=== PATIENT | male | born 1950 | race Caucasian/White ===

== ENCOUNTER 2019-09-17 15:31 | Inpatient (IN) | payer MEDICARE, MEDICAID ==
[~2019-09-17] VITALS: Ht 185.4 cm; Wt 108.9 kg
[~2019-09-17 15:31] MED LIST: NO MEDS
[2019-09-17] MEDS ORDERED: SODIUM CHLORIDE 0.9% 250 ML IV ONE (15:45)
[2019-09-17] MEDS ORDERED: LIDOCAINE HCL/EPINEPHRINE 1%-EPI 1:100,000 30 ML VIAL INFIL ONE (15:45)
[2019-09-17] MEDS ORDERED: DILTIAZEM HCL 5MG/ML 5ML VIAL IV ONE (15:45)
[2019-09-17] MEDS ORDERED: LIDOCAINE HCL/EPINEPHRINE 1%-EPI 1:100,000 20 ML VIAL INFIL NR (16:15)
[2019-09-17 16:18] LABS: HEMATOCRIT. 30.6 % (42.0-52.0); HEMOGLOBIN. 10.2 g/dL (14.0-18.0); MEAN CORPUSCULAR HEMOGLOBIN 28.1 pg (28.0-32.0); MEAN PLATELET VOLUME 7.4 fl (7.4-10.4); PLATELET 257 x1000/uL (130-400); RED BLOOD CELL COUNT 3.65 mill/uL (4.7-6.1); RED CELL DISTRIBUTION WIDTH 17.3 % (11.6-14.6)
[2019-09-17 16:21] LABS: CHLORIDE 103 mEq/L (98-107)
[2019-09-17] MEDS ORDERED: POTASSIUM CHLORIDE INJ 40 MEQ in DEXT 5% WATER 250 ML IV NR (17:00)
[2019-09-17] MEDS ORDERED: FENTANYL CITRATE/PF 50MCG/ML 2ML VIAL IV ONE (17:00)
[2019-09-17] MEDS ORDERED: KETOROLAC 15MG/ML VIAL IV ONE (17:00)
[2019-09-17 17:16] LABS: INR 1.2; PARTIAL THROMBOPLASTIN TIME 23.4 sec (23.4-31.0); PROTHROMBIN TIME 12.1 sec (9.6-11.0)
[2019-09-17 17:38] LABS: PLATELET ESTIMATE NORMAL
[2019-09-17] MEDS ORDERED: POTASSIUM CHLORIDE 20MEQ TABLET SR PO ONE (18:30)
[2019-09-17] MEDS ORDERED: FUROSEMIDE 40MG/4ML VIAL IVP ONE (18:45)
[2019-09-17] MEDS ORDERED: DILTIAZEM HCL 60MG TABLET PO SCH (21:37)
[2019-09-17 21:58] LABS: BASOPHILS % 0.6 % (0.0-2.0); HEMATOCRIT. 27.7 % (42.0-52.0); HEMOGLOBIN. 9.2 g/dL (14.0-18.0); LYMPHOCYTES % 10.3 % (20.0-50.0); MEAN CORPUSCULAR HEMOGLOBIN 27.8 pg (28.0-32.0); MEAN CORPUSCULAR VOLUME 83.6 fL (80.0-94.0); MEAN PLATELET VOLUME 7.2 fl (7.4-10.4); MONOCYTES % 7.3 % (2.0-8.0); NEUTROPHILS % 81.8 % (40.0-76.0); PLATELET 229 x1000/uL (130-400); RED BLOOD CELL COUNT 3.32 mill/uL (4.7-6.1); RED CELL DISTRIBUTION WIDTH 17.3 % (11.6-14.6)
[2019-09-17 22:04] LABS: CHLORIDE 104 mEq/L (98-107)
[2019-09-17] MEDS ORDERED: POTASSIUM CHLORIDE 20MEQ TABLET SR PO SCH (22:30)
[2019-09-17] MEDS ORDERED: OMEP10CA5 MT (23:45)
[2019-09-17 23:47] VITALS: BP 119/65
[2019-09-18] VITALS: BP 119/65
[2019-09-18] MEDS: DILTIAZEM HCL 60MG TABLET PO SCH ×4 (00:22→20:09)
[2019-09-18] MEDS ORDERED: TRAMADOL 50MG TABLET PO PRN (01:15)
[2019-09-18] MEDS ORDERED: TEMAZEPAM 15MG CAPSULE PO PRN (01:15)
[2019-09-18] MEDS: HYDROMORPHONE HCL/PF 2MG/ML CPJ IV PRN ×3 (02:49→20:14)
[2019-09-18 04:00] VITALS: BP 114/81
[2019-09-18 06:50] LABS: INR 1.2; PROTHROMBIN TIME 12.3 sec (9.6-11.0)
[2019-09-18 06:53] LABS: BASOPHILS % 0.6 % (0.0-2.0); EOSINOPHILS % 0.4 % (0.0-5.0); HEMATOCRIT. 27.2 % (42.0-52.0); LYMPHOCYTES % 18.3 % (20.0-50.0); MEAN CORPUSCULAR HEMOGLOBIN 27.9 pg (28.0-32.0); MEAN CORPUSCULAR VOLUME 83.8 fL (80.0-94.0); MEAN PLATELET VOLUME 7.4 fl (7.4-10.4); MONOCYTES % 11.3 % (2.0-8.0); NEUTROPHILS % 69.4 % (40.0-76.0); PLATELET 237 x1000/uL (130-400); RED BLOOD CELL COUNT 3.24 mill/uL (4.7-6.1); RED CELL DISTRIBUTION WIDTH 17.3 % (11.6-14.6)
[2019-09-18 06:59] LABS: CHLORIDE 102 mEq/L (98-107)
[2019-09-18 07:17] LABS: CREATINE KINASE 67 IU/L (39-308)
[2019-09-18 07:19] LABS: CREATINE KINASE MB FRACTION 1.2 ng/mL (0.5-3.6)
[2019-09-18 07:42] VITALS: BP 98/62
[2019-09-18] MEDS ORDERED: POTASSIUM CHLORIDE 20MEQ TABLET SR PO NR (10:10)
[2019-09-18] MEDS: PANTOPRAZOLE 40MG DR TABLET PO SCH (10:14)
[2019-09-18] MEDS ORDERED: PIPERACILLIN/TAZOBACTAM 2.25 G in DEXTROSE 5% WATER 50 ML IV SCH (11:00)
[2019-09-18 12:00] VITALS: BP 118/61
[2019-09-18 12:37] LABS: CANNABINOID URINE SCREEN PRESUMTIVE POSITIVE (NEGATIVE); OPIATES URINE SCREEN PRESUMTIVE POSITIVE (NEGATIVE); PHENCYCLIDINE URINE SCREEN NEGATIVE (NEGATIVE)
[2019-09-18 12:38] LABS: *AMPHETAMINES SCREEN URINE PRESUMTIVE POSITIVE (NEGATIVE); *BARBITURATES SCREEN URINE NEGATIVE (NEGATIVE); *BENZODIAZEPINES SCREEN URINE NEGATIVE (NEGATIVE); *COCAINE SCREEN URINE NEGATIVE (NEGATIVE); METHADONE URINE SCREEN PRESUMTIVE POSITIVE (NEGATIVE)
[2019-09-18] MEDS ORDERED: VANCOMYCIN 2,000 MG in DEXT 5% WATER 500 ML IV NR (13:00)
[2019-09-18] MEDS: PIPERACILLIN/TAZOBACTAM 3.375 G in DEXT 5% WATER 100 ML IV SCH ×2 (13:16→18:54)
[2019-09-18] MEDS ORDERED: POTASSIUM CHLORIDE 20MEQ TABLET SR PO SCH (14:45)
[2019-09-18 15:41] LABS: CREATINE KINASE 55 IU/L (39-308)
[2019-09-18 15:43] LABS: CREATINE KINASE MB FRACTION 1.1 ng/mL (0.5-3.6)
[2019-09-18 16:00] VITALS: BP 98/61
[2019-09-18] MEDS ORDERED: ACETAMINOPHEN 650MG SUPP PR PRN (16:00)
[2019-09-18] MEDS ORDERED: LORAZEPAM 2MG/ML CPJ IV PRN (16:00)
[2019-09-18] MEDS ORDERED: HYDRALAZINE 20MG/ML VIAL IV PRN (16:00)
[2019-09-18] MEDS ORDERED: DIPHENHYDRAMINE 50MG/ML VIAL IV PRN (16:00)
[2019-09-18] MEDS ORDERED: IPRATROPIUM/ALBUTEROL 0.5-3(2.5)MG/3ML NEB HHN PRN (16:00)
[2019-09-18] MEDS ORDERED: BISACODYL 10MG SUPP PR PRN (16:00)
[2019-09-18] MEDS ORDERED: ACETAMINOPHEN 325MG TABLET PO PRN (16:00)
[2019-09-18] MEDS: FUROSEMIDE 40MG/4ML VIAL IVP SCH (16:49)
[2019-09-18 17:03] LABS: HEMATOCRIT 23.8 % (42.0-52.0); HEMOGLOBIN 7.9 g/dL (14.0-18.0)
[2019-09-18 20:00] VITALS: BP 99/52
[2019-09-18 22:05] LABS: CLARITY URINE CLEAR (CLEAR); COLOR URINE YELLOW (YELLOW); KETONES URINE NEGATIVE (NEGATIVE); LEUKOCYTE ESTERASE URINE NEGATIVE (NEGATIVE); NITRITE URINE NEGATIVE (NEGATIVE); OCCULT BLOOD URINE NEGATIVE (NEGATIVE); PH URINE 5.5 (4.5-8.0); PROTEIN URINE NEGATIVE (NEGATIVE); SPECIFIC GRAVITY URINE 1.019 (1.005-1.030); UROBILINOGEN URINE 0.2 E.U./dL (0.2-1.0)
[2019-09-19] VITALS: BP 120/57
[2019-09-19 00:37] LABS: CREATINE KINASE 50 IU/L (39-308)
[2019-09-19 00:46] LABS: CREATINE KINASE MB FRACTION 1.2 ng/mL (0.5-3.6)
[2019-09-19] MEDS: PIPERACILLIN/TAZOBACTAM 3.375 G in DEXT 5% WATER 100 ML IV SCH ×4 (01:14→19:40)
[2019-09-19] MEDS: HYDROMORPHONE HCL/PF 2MG/ML CPJ IV PRN ×3 (03:07→22:16)
[2019-09-19 04:00] VITALS: BP 92/85
[2019-09-19] MEDS: DILTIAZEM HCL 60MG TABLET PO SCH ×3 (05:52→21:46)
[2019-09-19] MEDS: VANCOMYCIN 1250MG in DEXTROSE 5% WATER 250ML IV SCH ×3 (06:07→23:39)
[2019-09-19 07:42] LABS: BASOPHILS % 0.6 % (0.0-2.0); EOSINOPHILS % 1.1 % (0.0-5.0); HEMATOCRIT. 23.4 % (42.0-52.0); HEMOGLOBIN. 7.8 g/dL (14.0-18.0); LYMPHOCYTES % 15.3 % (20.0-50.0); MEAN CORPUSCULAR HEMOGLOBIN 27.8 pg (28.0-32.0); MEAN CORPUSCULAR VOLUME 83.4 fL (80.0-94.0); MEAN PLATELET VOLUME 7.4 fl (7.4-10.4); MONOCYTES % 12.4 % (2.0-8.0); NEUTROPHILS % 70.6 % (40.0-76.0); PLATELET 213 x1000/uL (130-400); RED CELL DISTRIBUTION WIDTH 17.8 % (11.6-14.6)
[2019-09-19 07:52] LABS: CHLORIDE 104 mEq/L (98-107)
[2019-09-19 08:00] VITALS: BP 91/46
[2019-09-19 08:01] LABS: LDL CHOLESTEROL 48 mg/dL (5-100)
[2019-09-19 08:03] LABS: HDL CHOLESTEROL 25 mg/dL (40-59); T4 FREE 1.14 ng/dL (0.76-1.46)
[2019-09-19 08:31] LABS: HEPATITIS B SURFACE ANTIGEN NEGATIVE
[2019-09-19 08:32] LABS: VITAMIN B12 SERUM 826 pg/mL (211-911)
[2019-09-19 09:00] LABS: HEPATITIS A AB IGM NEGATIVE (NEGATIVE)
[2019-09-19] MEDS ORDERED: IOHEXOL-350 100 ML BOTTLE ONE (09:23)
[2019-09-19] MEDS: PANTOPRAZOLE 40MG DR TABLET PO SCH (09:38)
[2019-09-19] MEDS: FUROSEMIDE 40MG/4ML VIAL IVP SCH (09:38)
[2019-09-19] MEDS: POTASSIUM CHLORIDE 20MEQ TABLET SR PO SCH (09:41)
[2019-09-19 12:00] VITALS: BP 95/58
[2019-09-19 16:00] VITALS: BP 90/55
[2019-09-19 20:00] VITALS: BP 87/54
[2019-09-20] VITALS: BP 90/55
[2019-09-20] MEDS: PIPERACILLIN/TAZOBACTAM 3.375 G in DEXT 5% WATER 100 ML IV SCH ×4 (01:20→18:11)
[2019-09-20 04:00] VITALS: BP 110/72
[2019-09-20] MEDS: HYDROMORPHONE HCL/PF 2MG/ML CPJ IV PRN (04:33)
[2019-09-20] MEDS: DILTIAZEM HCL 60MG TABLET PO SCH ×3 (05:37→22:00)
[2019-09-20 08:00] VITALS: BP 149/123
[2019-09-20] MEDS: PANTOPRAZOLE 40MG DR TABLET PO SCH (08:45)
[2019-09-20] MEDS: FUROSEMIDE 40MG/4ML VIAL IVP SCH (08:46)
[2019-09-20] MEDS: POTASSIUM CHLORIDE 20MEQ TABLET SR PO SCH (08:46)
[2019-09-20] MEDS: HYDROCODONE/ACETAMINOPHEN 5/325MG TABLET PO PRN ×2 (08:52→22:34)
[2019-09-20 12:00] VITALS: BP 81/65
[2019-09-20 15:43] VITALS: BP 83/45
[2019-09-20] MEDS: LEVOTHYROXINE SODIUM 100MCG TABLET PO SCH (15:49)
[2019-09-20 20:00] VITALS: BP 96/56
[2019-09-20] MEDS: VANCOMYCIN 1250MG in DEXTROSE 5% WATER 250ML IV SCH (22:34)
[2019-09-21] VITALS: BP 103/58
[2019-09-21] MEDS: HYDROMORPHONE HCL/PF 2MG/ML CPJ IV PRN ×5 (00:17→19:40)
[2019-09-21] MEDS: PIPERACILLIN/TAZOBACTAM 3.375 G in DEXT 5% WATER 100 ML IV SCH ×4 (01:12→18:18)
[2019-09-21 04:00] VITALS: BP 97/53
[2019-09-21] MEDS: DILTIAZEM HCL 60MG TABLET PO SCH ×3 (06:00→22:00)
[2019-09-21] MEDS: LEVOTHYROXINE SODIUM 100MCG TABLET PO SCH (06:10)
[2019-09-21 07:13] LABS: BASOPHILS % 0.5 % (0.0-2.0); EOSINOPHILS % 1.7 % (0.0-5.0); HEMATOCRIT. 23.4 % (42.0-52.0); HEMOGLOBIN. 7.7 g/dL (14.0-18.0); LYMPHOCYTES % 20.6 % (20.0-50.0); MEAN CORPUSCULAR HEMOGLOBIN 27.6 pg (28.0-32.0); MEAN CORPUSCULAR VOLUME 83.5 fL (80.0-94.0); MEAN PLATELET VOLUME 7.4 fl (7.4-10.4); MONOCYTES % 14.4 % (2.0-8.0); NEUTROPHILS % 62.8 % (40.0-76.0); PLATELET 227 x1000/uL (130-400); RED CELL DISTRIBUTION WIDTH 17.5 % (11.6-14.6)
[2019-09-21 07:16] LABS: CHLORIDE 108 mEq/L (98-107)
[2019-09-21 07:25] LABS: TOTAL IRON BINDING CAPACITY 343 ug/dL (250-450)
[2019-09-21 07:26] LABS: PHOSPHORUS 3.2 mg/dL (2.5-4.9)
[2019-09-21 07:55] VITALS: BP 93/48
[2019-09-21] MEDS: POTASSIUM CHLORIDE 20MEQ TABLET SR PO SCH (08:34)
[2019-09-21] MEDS: FUROSEMIDE 40MG/4ML VIAL IVP SCH (08:34)
[2019-09-21] MEDS: PANTOPRAZOLE 40MG DR TABLET PO SCH (08:34)
[2019-09-21] MEDS ORDERED: POTASSIUM CHLORIDE 20MEQ TABLET SR PO NR (09:45)
[2019-09-21 12:00] VITALS: BP 100/53
[2019-09-21 16:00] VITALS: BP 100/53
[2019-09-21 20:00] VITALS: BP 119/71
[2019-09-21] MEDS: VANCOMYCIN 1250MG in DEXTROSE 5% WATER 250ML IV SCH (23:32)
[2019-09-22] VITALS (7 sets, daily range): BP systolic 101–121; BP diastolic 57–75
[2019-09-22] MEDS: HYDROMORPHONE HCL/PF 2MG/ML CPJ IV PRN ×5 (01:04→23:24)
[2019-09-22] MEDS: PIPERACILLIN/TAZOBACTAM 3.375 G in DEXT 5% WATER 100 ML IV SCH ×4 (01:04→19:53)
[2019-09-22] MEDS: DEXT 5%/0.45% NACL 1000ML 1,000 ML IV SCH ×2 (02:23→19:56)
[2019-09-22 06:12] LABS: HEMATOCRIT 23.9 % (42.0-52.0); MEAN CORPUSCULAR VOLUME 83.8 fL (80.0-94.0); PLATELET 254 x1000/uL (130-400); RED BLOOD CELL COUNT 2.85 mill/uL (4.7-6.1); RED CELL DISTRIBUTION WIDTH 17.2 % (11.6-14.6)
[2019-09-22] MEDS: LEVOTHYROXINE SODIUM 100MCG TABLET PO SCH (06:15)
[2019-09-22] MEDS: DILTIAZEM HCL 60MG TABLET PO SCH ×3 (06:15→22:42)
[2019-09-22 06:18] LABS: INR 1.1; PARTIAL THROMBOPLASTIN TIME 28.5 sec (23.4-31.0); PROTHROMBIN TIME 11.9 sec (9.6-11.0)
[2019-09-22 06:39] LABS: CHLORIDE 108 mEq/L (98-107)
[2019-09-22] MEDS: POTASSIUM CHLORIDE 20MEQ TABLET SR PO SCH (09:00)
[2019-09-22] MEDS: FUROSEMIDE 40MG/4ML VIAL IVP SCH ×2 (09:00→09:03)
[2019-09-22] MEDS: PANTOPRAZOLE 40MG DR TABLET PO SCH (09:00)
[2019-09-22] MEDS ORDERED: SODIUM CHLORIDE 0.9% 1,000 ML IV ONE (16:21)
[2019-09-22] MEDS ORDERED: ONDANSETRON HCL 4MG/2ML INJ IV PRN (16:30)
[2019-09-22] MEDS ORDERED: HYDROMORPHONE HCL/PF 2MG/ML CPJ IV PRN (16:30)
[2019-09-22] MEDS ORDERED: PROPOFOL 200MG/20ML VIAL IV ONE (16:33)
[2019-09-22] MEDS ORDERED: SUCCINYLCHOLINE CHLORIDE 200MG/10ML IV ONE (16:33)
[2019-09-22] MEDS ORDERED: MIDAZOLAM HCL 5 MG/5 ML VIAL ONE (16:33)
[2019-09-22] MEDS: VANCOMYCIN 1250MG in DEXTROSE 5% WATER 250ML IV SCH (23:23)
[2019-09-23] VITALS: BP 141/94
[2019-09-23 04:00] VITALS: BP 93/54
[2019-09-23] MEDS ORDERED: HYDROMORPHONE HCL/PF 2MG/ML CPJ IV PRN (04:45)
[2019-09-23] MEDS: PIPERACILLIN/TAZOBACTAM 3.375 G in DEXT 5% WATER 100 ML IV SCH ×4 (04:49→19:57)
[2019-09-23] MEDS: DILTIAZEM HCL 60MG TABLET PO SCH (06:00)
[2019-09-23 06:53] LABS: HEMATOCRIT 23.6 % (42.0-52.0); HEMOGLOBIN 7.9 g/dL (14.0-18.0); MEAN CORPUSCULAR HEMOGLOBIN 28.2 pg (28.0-32.0); MEAN CORPUSCULAR VOLUME 84.5 fL (80.0-94.0); PLATELET 267 x1000/uL (130-400); RED CELL DISTRIBUTION WIDTH 17.2 % (11.6-14.6)
[2019-09-23 07:26] LABS: CHLORIDE 109 mEq/L (98-107)
[2019-09-23 07:52] VITALS: BP 115/43
[2019-09-23] MEDS: LEVOTHYROXINE SODIUM 100MCG TABLET PO SCH (09:07)
[2019-09-23] MEDS: PANTOPRAZOLE 40MG DR TABLET PO SCH (09:07)
[2019-09-23] MEDS: POTASSIUM CHLORIDE 20MEQ TABLET SR PO SCH (09:07)
[2019-09-23] MEDS: FUROSEMIDE 40MG/4ML VIAL IVP SCH (09:07)
[2019-09-23] MEDS: HYDROCODONE/ACETAMINOPHEN 5/325MG TABLET PO PRN ×2 (09:57→19:58)
[2019-09-23 12:00] VITALS: BP 114/72
[2019-09-23] MEDS: VANCOMYCIN 1 G PREMIX 200 ML IV SCH ×2 (12:18→21:36)
[2019-09-23] MEDS ORDERED: LEVO100T MT (13:12)
[2019-09-23] MEDS ORDERED: PANT40SU MT (13:12)
[2019-09-23] MEDS ORDERED: DILT30TA38 MT (13:12)
[2019-09-23] MEDS: DILTIAZEM HCL 30MG TABLET PO SCH ×2 (14:00→21:36)
[2019-09-23] MEDS ORDERED: FURO-151 MT (16:46)
[2019-09-23] MEDS ORDERED: POTA10CA42 PO (16:46)
[2019-09-23 20:00] VITALS: BP 133/78
[2019-09-23] MEDS ORDERED: TRAZODONE HCL 50MG TABLET PO SCH (22:30)
[2019-09-24] VITALS: BP 132/82
[2019-09-24] MEDS: HYDROCODONE/ACETAMINOPHEN 10/325MG TABLET PO PRN ×2 (01:40→08:23)
[2019-09-24 04:00] VITALS: BP 126/65
[2019-09-24] MEDS: DILTIAZEM HCL 30MG TABLET PO SCH ×2 (06:00→06:40)
[2019-09-24] MEDS: LEVOTHYROXINE SODIUM 100MCG TABLET PO SCH ×2 (06:40→06:53)
[2019-09-24 07:49] VITALS: BP 110/61
[2019-09-24] MEDS: PANTOPRAZOLE 40MG DR TABLET PO SCH (08:23)
[2019-09-24] MEDS: POTASSIUM CHLORIDE 20MEQ TABLET SR PO SCH (08:23)
[2019-09-24] MEDS: FUROSEMIDE 40MG/4ML VIAL IVP SCH (09:12)
[2019-09-24 11:53] VITALS: BP 127/68
== END 2019-09-24 12:15 | disposition home or self-care (01) | DRG 871 ==
LOC: ER 15:31 → 8WST 18:34 → ENRESERV 21:56
PROVIDERS: ADMIT Internal Medicine; ATTEND Internal Medicine
PROC: 0DB68ZX Excision of Stomach, Via Natural or Artificial Opening Endoscopic, Diagnostic (ICD-10-PCS; principal; 2019-09-22)
DX: A41.9 Sepsis, unspecified organism (principal); I50.33 Acute on chronic diastolic (congestive) heart failure; L03.116 Cellulitis of left lower limb; L03.115 Cellulitis of right lower limb; I48.91 Unspecified atrial fibrillation; E87.6 Hypokalemia; B18.2 Chronic viral hepatitis C; K44.9 Diaphragmatic hernia without obstruction or gangrene; F43.10 Post-traumatic stress disorder, unspecified; D50.0 Iron deficiency anemia secondary to blood loss (chronic); E03.9 Hypothyroidism, unspecified; E78.5 Hyperlipidemia, unspecified; F31.9 Bipolar disorder, unspecified; I07.1 Rheumatic tricuspid insufficiency; I11.0 Hypertensive heart disease with heart failure; I27.20 Pulmonary hypertension, unspecified; F11.10 Opioid abuse, uncomplicated; F12.10 Cannabis abuse, uncomplicated; G90.8 Other disorders of autonomic nervous system; I73.9 Peripheral vascular disease, unspecified; F15.10 Other stimulant abuse, uncomplicated; I83.90 Asymptomatic varicose veins of unspecified lower extremity; R73.9 Hyperglycemia, unspecified; R61 Generalized hyperhidrosis; K29.70 Gastritis, unspecified, without bleeding; Z88.5 Allergy status to narcotic agent; Z87.19 Personal history of other diseases of the digestive system; Z79.899 Other long term (current) drug therapy; Z79.1 Long term (current) use of non-steroidal anti-inflammatories (NSAID)
CPT/HCPCS: 36415; 71045; 75635; 80048; 80053; 80061; 80202; 80305; 81003; 82140; 82270; 82550; 82553; 82607; 83036; 83540; 83550; 83735; 83880; 84100; 84439; 84443; 84484; 85014; 85018; 85025; 85027; 86705; 86709; 86803; 86850; 86900; 87340; 88305; 88313; 93005; 93306; 93880; 93970; 97162; 99291; J0330; J1170; J1885; J1940; J2060; J2250; J2543; J2704; J3010; J3370; J3480; J3490; J7050; J7060; Q9967

== ENCOUNTER 2020-11-07 20:28 | Inpatient (IN) | payer MEDICARE, MEDICAID ==
[~2020-11-07] VITALS: Ht 180.3 cm; Wt 104.8 kg
[~2020-11-07 20:28] MED LIST changes: +DILT30TA38 MT; +FURO-151 MT; +LEVO100T MT; -NO MEDS; +OMEP10CA5 MT; +PANT40SU MT; +POTA10CA42 PO
[2020-11-07] MEDS ORDERED: ASPIRIN 81MG TABLET PO ONE (20:45)
[2020-11-07 22:28] LABS: BASOPHILS % 0.3 % (0.0-2.0); HEMATOCRIT. 37.5 % (42.0-52.0); HEMOGLOBIN. 12.6 g/dL (14.0-18.0); LYMPHOCYTES % 8.1 % (20.0-50.0); MEAN CORPUSCULAR HEMOGLOBIN 28.1 pg (28.0-32.0); MEAN CORPUSCULAR VOLUME 83.8 fL (80.0-94.0); MEAN PLATELET VOLUME 7.9 fl (7.4-10.4); NEUTROPHILS % 85.6 % (40.0-76.0); PLATELET 152 x1000/uL (130-400); RED BLOOD CELL COUNT 4.48 mill/uL (4.7-6.1); RED CELL DISTRIBUTION WIDTH 16.2 % (11.6-14.6)
[2020-11-07 22:33] LABS: CHLORIDE 107 mEq/L (98-107)
[2020-11-08] MEDS ORDERED: FUROSEMIDE 40MG/4ML VIAL IVP ONE (00:45)
[2020-11-08] MEDS: IPRATROPIUM/ALBUTEROL 0.5-3(2.5)MG/3ML NEB HHN SCH ×2 (06:00→12:20)
[2020-11-08] MEDS ORDERED: ALBUTEROL 6.7GM HFA INHALER ORI ONE (06:30)
[2020-11-08] MEDS ORDERED: FUROSEMIDE 40MG/4ML VIAL IV SCH (06:30)
[2020-11-08 09:00] VITALS: BP_SYST 136; BP_SYST 147; BP_DIAS 88
[2020-11-08] MEDS ORDERED: ALBUTEROL 6.7GM HFA INHALER ORI SCH (10:30)
[2020-11-08] MEDS ORDERED: LORAZEPAM 2MG/ML CPJ IV PRN (10:30)
[2020-11-08] MEDS ORDERED: AZITHROMYCIN 500 MG in DEXT 5% WATER 250 ML IV SCH (10:30)
[2020-11-08] MEDS ORDERED: CEFTRIAXONE 1 G PREMIX 50 ML IV SCH (10:30)
[2020-11-08] MEDS ORDERED: MAGNESIUM/ALUMINUM HYDROXIDE/SIMETHICONE 30ML UDC PO PRN (10:30)
[2020-11-08] MEDS ORDERED: ACETAMINOPHEN 650MG SUPP PR PRN (10:30)
[2020-11-08] MEDS: DEXAMETHASONE 10 MG/ML VIAL IV SCH (10:54)
[2020-11-08 11:37] LABS: BG BASE EXCESS 6.6 mmol/L (-2.0-2.0); BG CARBOXYHEMOGLOBIN 0.5 % (0.5-1.5); BG HCO3 ACT 29.2 mmol/L (22.0-26.0); BG OXYGEN SATURATION 87.9 % (92.0-98.5); BG OXYHEMOGLOBIN 87.5 % (94.0-97.0); BG PCO2 35.3 mmHg (35.0-45.0); BG PH 7.536 (7.350-7.450); BG PO2 50.7 mmHg (75.0-100.0); BG SAMPLE SITE LEFT RADIAL; BG TOTAL HEMOGLOBIN 14.4 g/dL (12.0-18.0); BG VENT MODE NASAL CANNULA
[2020-11-08 11:53] VITALS: BP 127/70
[2020-11-08] MEDS: CEFTRIAXONE 1,000 MG in DEXTROSE 5% WATER 50 ML IV SCH (12:44)
[2020-11-08] MEDS: AZITHROMYCIN 500 MG in DEXT 5% WATER 250 ML IV SCH (12:44)
[2020-11-08] MEDS: ENOXAPARIN 100MG/ML SYR SUBCUT SCH ×2 (12:44→22:24)
[2020-11-08] MEDS: ALBUTEROL 6.7GM HFA INHALER ORI SCH ×2 (12:59→19:07)
[2020-11-08 14:15] LABS: CLARITY URINE CLEAR (CLEAR); COLOR URINE YELLOW (YELLOW); KETONES URINE NEGATIVE (NEGATIVE); LEUKOCYTE ESTERASE URINE NEGATIVE (NEGATIVE); NITRITE URINE NEGATIVE (NEGATIVE); OCCULT BLOOD URINE 1+ (NEGATIVE); PROTEIN URINE NEGATIVE (NEGATIVE); SPECIFIC GRAVITY URINE 1.007 (1.005-1.030)
[2020-11-08 14:35] LABS: *AMPHETAMINES SCREEN URINE NEGATIVE (NEGATIVE); *BARBITURATES SCREEN URINE NEGATIVE (NEGATIVE); *BENZODIAZEPINES SCREEN URINE NEGATIVE (NEGATIVE); *COCAINE SCREEN URINE NEGATIVE (NEGATIVE); METHADONE URINE SCREEN NEGATIVE (NEGATIVE); OPIATES URINE SCREEN NEGATIVE (NEGATIVE)
[2020-11-08 14:36] LABS: CANNABINOID URINE SCREEN NEGATIVE (NEGATIVE); PHENCYCLIDINE URINE SCREEN NEGATIVE (NEGATIVE)
[2020-11-08 15:58] VITALS: BP 114/79
[2020-11-08] MEDS ORDERED: LIDOCAINE HCL/PF 1% 2ML VIAL ONE (18:30)
[2020-11-08 20:28] VITALS: BP 119/85
[2020-11-08 21:31] LABS: BG BASE EXCESS 7.9 mmol/L (-2.0-2.0); BG CARBOXYHEMOGLOBIN 0.4 % (0.5-1.5); BG DEOXYHEMOGLOBIN 8.9 % (0.0-5.0); BG FRACTION INSPIRED OXYGEN 60; BG HCO3 ACT 32.1 mmol/L (22.0-26.0); BG METHEMOGLOBIN 0.2 % (0.0-1.5); BG OXYHEMOGLOBIN 90.5 % (94.0-97.0); BG PCO2 42.8 mmHg (35.0-45.0); BG PH 7.493 (7.350-7.450); BG PO2 57.6 mmHg (75.0-100.0); BG SAMPLE SITE LEFT RADIAL; BG TOTAL HEMOGLOBIN 14.3 g/dL (12.0-18.0)
[2020-11-08] MEDS ORDERED: MORPHINE SULFATE 2 MG/ML CPJ (NOT FOR IM USE) IV PRN (22:00)
[2020-11-08 22:12] LABS: BASOPHILS % 0.3 % (0.0-2.0); HEMATOCRIT. 42.5 % (42.0-52.0); HEMOGLOBIN. 14.1 g/dL (14.0-18.0); LYMPHOCYTES % 17.4 % (20.0-50.0); MEAN CORPUSCULAR HEMOGLOBIN 28.2 pg (28.0-32.0); MONOCYTES % 5.8 % (2.0-8.0); NEUTROPHILS % 76.5 % (40.0-76.0); PLATELET 165 x1000/uL (130-400); RED BLOOD CELL COUNT 5.01 mill/uL (4.7-6.1); RED CELL DISTRIBUTION WIDTH 16.4 % (11.6-14.6)
[2020-11-08 22:16] LABS: CHLORIDE 105 mEq/L (98-107)
[2020-11-08 22:20] LABS: D-DIMER 1.06 mg/L FEU (<0.50); INR 1.2; PROTHROMBIN TIME 12.3 sec (9.6-11.0)
[2020-11-08] MEDS: DILTIAZEM HCL 30MG TABLET PO SCH (22:24)
[2020-11-08] MEDS: FAMOTIDINE 20MG TABLET PO SCH (22:25)
[2020-11-08 22:27] LABS: CREATINE KINASE MB FRACTION 2.9 ng/mL (0.5-3.6)
[2020-11-08] MEDS ORDERED: POTASSIUM CHLORIDE 20MEQ TABLET SR PO NR (23:11)
[2020-11-08] MEDS: HYDROCODONE/ACETAMINOPHEN 5/325MG TABLET PO PRN (23:32)
[2020-11-09] MEDS: ALBUTEROL 6.7GM HFA INHALER ORI SCH ×4 (00:19→18:41)
[2020-11-09 00:25] VITALS: BP 107/73
[2020-11-09 04:00] VITALS: BP 124/83
[2020-11-09] MEDS: DILTIAZEM HCL 30MG TABLET PO SCH ×3 (05:05→19:54)
[2020-11-09 05:07] VITALS: BP 124/83
[2020-11-09] MEDS: DEXAMETHASONE 10 MG/ML VIAL IV SCH (09:18)
[2020-11-09] MEDS: ENOXAPARIN 100MG/ML SYR SUBCUT SCH ×2 (09:18→19:55)
[2020-11-09] MEDS: FUROSEMIDE 40MG/4ML VIAL IV SCH (09:19)
[2020-11-09 09:56] LABS: BG BASE EXCESS 2.7 mmol/L (-2.0-2.0); BG CARBOXYHEMOGLOBIN 0.6 % (0.5-1.5); BG DEOXYHEMOGLOBIN 5.9 % (0.0-5.0); BG FRACTION INSPIRED OXYGEN 100; BG HCO3 ACT 26.1 mmol/L (22.0-26.0); BG METHEMOGLOBIN 0.2 % (0.0-1.5); BG OXYGEN SATURATION 94.1 % (92.0-98.5); BG OXYHEMOGLOBIN 93.3 % (94.0-97.0); BG PCO2 36.3 mmHg (35.0-45.0); BG PH 7.474 (7.350-7.450); BG PO2 68.6 mmHg (75.0-100.0); BG SAMPLE SITE LEFT RADIAL; BG VENT MODE MASK - NRB
[2020-11-09] MEDS ORDERED: POTASSIUM CHLORIDE 20MEQ TABLET SR PO NR (11:00)
[2020-11-09] MEDS: CEFTRIAXONE 1,000 MG in DEXTROSE 5% WATER 50 ML IV SCH (11:54)
[2020-11-09] MEDS: AZITHROMYCIN 500 MG in DEXT 5% WATER 250 ML IV SCH (11:54)
[2020-11-09 12:00] VITALS: BP 98/77
[2020-11-09] MEDS: HYDROCODONE/ACETAMINOPHEN 5/325MG TABLET PO PRN ×2 (12:09→19:55)
[2020-11-09] MEDS ORDERED: CLONAZEPAM 0.5MG TABLET PO NR ×2 (12:45)
[2020-11-09] MEDS ORDERED: NALOXONE HCL 0.4MG/ML VIAL IV PRN (12:45)
[2020-11-09] MEDS ORDERED: CLONAZEPAM 0.5MG TABLET PO PRN (12:45)
[2020-11-09 16:00] VITALS: BP 110/80
[2020-11-09] MEDS: FAMOTIDINE 20MG TABLET PO SCH (19:54)
[2020-11-09 20:00] VITALS: BP 112/80
[2020-11-09] MEDS: CLONAZEPAM 1MG TABLET PO PRN (21:00)
[2020-11-09 21:44] LABS: HEMATOCRIT. 41.7 % (42.0-52.0); HEMOGLOBIN. 13.7 g/dL (14.0-18.0); MEAN CORPUSCULAR HEMOGLOBIN 28.2 pg (28.0-32.0); MEAN CORPUSCULAR VOLUME 85.6 fL (80.0-94.0); MEAN PLATELET VOLUME 8.4 fl (7.4-10.4); PLATELET 184 x1000/uL (130-400); RED BLOOD CELL COUNT 4.87 mill/uL (4.7-6.1); RED CELL DISTRIBUTION WIDTH 16.4 % (11.6-14.6)
[2020-11-09 21:47] LABS: CHLORIDE 106 mEq/L (98-107)
[2020-11-09 21:55] LABS: LDL CHOLESTEROL 84 mg/dL (5-100)
[2020-11-09 21:57] LABS: CREATINE KINASE MB FRACTION 5.7 ng/mL (0.5-3.6); HDL CHOLESTEROL 26 mg/dL (40-59); T4 FREE 1.02 ng/dL (0.76-1.46)
[2020-11-09 22:35] LABS: PLATELET ESTIMATE NORMAL
[2020-11-10 00:05] VITALS: BP 117/75
[2020-11-10 04:00] VITALS: BP 146/80
[2020-11-10] MEDS: DILTIAZEM HCL 30MG TABLET PO SCH ×3 (05:51→20:04)
[2020-11-10] MEDS: HYDROCODONE/ACETAMINOPHEN 5/325MG TABLET PO PRN ×3 (05:55→19:05)
[2020-11-10] MEDS: ALBUTEROL 6.7GM HFA INHALER ORI SCH ×5 (05:56→23:27)
[2020-11-10 07:15] LABS: CHLORIDE 105 mEq/L (98-107)
[2020-11-10 07:19] LABS: HEMATOCRIT. 42.2 % (42.0-52.0); HEMOGLOBIN. 13.7 g/dL (14.0-18.0); MEAN CORPUSCULAR HEMOGLOBIN 27.5 pg (28.0-32.0); MEAN CORPUSCULAR VOLUME 84.5 fL (80.0-94.0); MEAN PLATELET VOLUME 8.2 fl (7.4-10.4); PLATELET 203 x1000/uL (130-400); RED BLOOD CELL COUNT 4.99 mill/uL (4.7-6.1); RED CELL DISTRIBUTION WIDTH 16.3 % (11.6-14.6)
[2020-11-10 08:00] VITALS: BP 108/80
[2020-11-10] MEDS: ENOXAPARIN 100MG/ML SYR SUBCUT SCH ×2 (08:33→20:04)
[2020-11-10] MEDS: DEXAMETHASONE 10 MG/ML VIAL IV SCH (08:33)
[2020-11-10] MEDS: FUROSEMIDE 40MG/4ML VIAL IV SCH (08:33)
[2020-11-10] MEDS ORDERED: HYDROMORPHONE HCL/PF 2MG/ML CPJ IV SCH (09:15)
[2020-11-10] MEDS ORDERED: POTASSIUM CHLORIDE 20MEQ TABLET SR PO SCH (09:15)
[2020-11-10] MEDS: CLONAZEPAM 1MG TABLET PO PRN ×2 (11:02→20:04)
[2020-11-10] MEDS: CEFTRIAXONE 1,000 MG in DEXTROSE 5% WATER 50 ML IV SCH (11:02)
[2020-11-10 12:00] VITALS: BP 114/77
[2020-11-10] MEDS: AZITHROMYCIN 500 MG in DEXT 5% WATER 250 ML IV SCH (13:33)
[2020-11-10 14:54] LABS: PLATELET ESTIMATE NORMAL
[2020-11-10 16:00] VITALS: BP 115/80
[2020-11-10] MEDS: FAMOTIDINE 20MG TABLET PO SCH (19:05)
[2020-11-10 20:00] VITALS: BP 122/77
[2020-11-10] MEDS: DIPHENHYDRAMINE 50MG/ML VIAL IV PRN (23:47)
[2020-11-11 00:05] VITALS: BP 126/71
[2020-11-11] MEDS: HYDROCODONE/ACETAMINOPHEN 5/325MG TABLET PO PRN (01:18)
[2020-11-11 04:00] VITALS: BP 134/92
[2020-11-11] MEDS: DILTIAZEM HCL 30MG TABLET PO SCH ×3 (05:04→21:52)
[2020-11-11] MEDS: DIPHENHYDRAMINE 50MG/ML VIAL IV PRN (05:04)
[2020-11-11] MEDS: ALBUTEROL 6.7GM HFA INHALER ORI SCH ×3 (05:05→17:08)
[2020-11-11 05:44] LABS: HEMATOCRIT. 40.4 % (42.0-52.0); MEAN CORPUSCULAR HEMOGLOBIN 27.6 pg (28.0-32.0); MEAN CORPUSCULAR VOLUME 85.7 fL (80.0-94.0); MEAN PLATELET VOLUME 8.3 fl (7.4-10.4); PLATELET 249 x1000/uL (130-400); RED BLOOD CELL COUNT 4.71 mill/uL (4.7-6.1); RED CELL DISTRIBUTION WIDTH 16.1 % (11.6-14.6)
[2020-11-11 05:54] LABS: CHLORIDE 105 mEq/L (98-107)
[2020-11-11 08:00] VITALS: BP 104/78
[2020-11-11] MEDS: CLONAZEPAM 1MG TABLET PO PRN ×2 (08:05→21:52)
[2020-11-11] MEDS: DEXAMETHASONE 10 MG/ML VIAL IV SCH (08:05)
[2020-11-11] MEDS: FUROSEMIDE 40MG/4ML VIAL IV SCH (08:05)
[2020-11-11] MEDS: ENOXAPARIN 100MG/ML SYR SUBCUT SCH ×2 (08:05→21:53)
[2020-11-11 11:02] LABS: PLATELET ESTIMATE NORMAL
[2020-11-11] MEDS: CEFTRIAXONE 1,000 MG in DEXTROSE 5% WATER 50 ML IV SCH (11:37)
[2020-11-11] MEDS: AZITHROMYCIN 500 MG in DEXT 5% WATER 250 ML IV SCH (11:37)
[2020-11-11 12:00] VITALS: BP 117/77
[2020-11-11 16:00] VITALS: BP 105/78
[2020-11-11 20:03] VITALS: BP 128/74
[2020-11-11] MEDS: FAMOTIDINE 20MG TABLET PO SCH (21:52)
[2020-11-12] VITALS (7 sets, daily range): BP systolic 110–132; BP diastolic 70–90
[2020-11-12] MEDS: DILTIAZEM HCL 30MG TABLET PO SCH ×3 (06:44→21:28)
[2020-11-12] MEDS: ALBUTEROL 6.7GM HFA INHALER ORI SCH ×4 (06:44→17:32)
[2020-11-12 08:16] LABS: HEMATOCRIT. 38.3 % (42.0-52.0); HEMOGLOBIN. 12.3 g/dL (14.0-18.0); MEAN CORPUSCULAR HEMOGLOBIN 27.5 pg (28.0-32.0); MEAN CORPUSCULAR VOLUME 85.6 fL (80.0-94.0); MEAN PLATELET VOLUME 8.3 fl (7.4-10.4); PLATELET 254 x1000/uL (130-400); RED BLOOD CELL COUNT 4.48 mill/uL (4.7-6.1); RED CELL DISTRIBUTION WIDTH 16.2 % (11.6-14.6)
[2020-11-12] MEDS: CLONAZEPAM 1MG TABLET PO PRN ×2 (08:57→21:28)
[2020-11-12] MEDS: ENOXAPARIN 100MG/ML SYR SUBCUT SCH ×2 (08:57→21:29)
[2020-11-12] MEDS: FUROSEMIDE 40MG/4ML VIAL IV SCH (08:57)
[2020-11-12] MEDS: DEXAMETHASONE 10 MG/ML VIAL IV SCH (08:57)
[2020-11-12 09:04] LABS: CHLORIDE 106 mEq/L (98-107)
[2020-11-12] MEDS: CEFTRIAXONE 1,000 MG in DEXTROSE 5% WATER 50 ML IV SCH (11:30)
[2020-11-12] MEDS: AZITHROMYCIN 500 MG in DEXT 5% WATER 250 ML IV SCH (11:30)
[2020-11-12] MEDS: HYDROCODONE/ACETAMINOPHEN 5/325MG TABLET PO PRN ×2 (11:31→22:35)
[2020-11-12 11:55] LABS: BG BASE EXCESS 2.7 mmol/L (-2.0-2.0); BG CARBOXYHEMOGLOBIN 0.7 % (0.5-1.5); BG FRACTION INSPIRED OXYGEN 100; BG HCO3 ACT 23.4 mmol/L (22.0-26.0); BG METHEMOGLOBIN 0.2 % (0.0-1.5); BG OXYHEMOGLOBIN 94.1 % (94.0-97.0); BG PCO2 25.8 mmHg (35.0-45.0); BG PH 7.575 (7.350-7.450); BG PO2 70.7 mmHg (75.0-100.0); BG SAMPLE SITE RIGHT RADIAL; BG TOTAL HEMOGLOBIN 13.6 g/dL (12.0-18.0); BG VENT MODE MASK - NRB
[2020-11-12 13:50] LABS: PLATELET ESTIMATE NORMAL
[2020-11-12] MEDS: FAMOTIDINE 20MG TABLET PO SCH (21:28)
[2020-11-13] VITALS: BP 104/72
[2020-11-13] MEDS: ALBUTEROL 6.7GM HFA INHALER ORI SCH ×5 (00:45→23:00)
[2020-11-13 04:00] VITALS: BP 123/85
[2020-11-13 06:12] LABS: HEMATOCRIT. 36.2 % (42.0-52.0); HEMOGLOBIN. 11.7 g/dL (14.0-18.0); MEAN CORPUSCULAR HEMOGLOBIN 27.6 pg (28.0-32.0); MEAN CORPUSCULAR VOLUME 85.3 fL (80.0-94.0); MEAN PLATELET VOLUME 8.3 fl (7.4-10.4); PLATELET 286 x1000/uL (130-400); RED BLOOD CELL COUNT 4.25 mill/uL (4.7-6.1); RED CELL DISTRIBUTION WIDTH 16.1 % (11.6-14.6)
[2020-11-13 06:43] LABS: CHLORIDE 103 mEq/L (98-107)
[2020-11-13] MEDS: DILTIAZEM HCL 30MG TABLET PO SCH ×3 (06:56→22:36)
[2020-11-13 08:00] VITALS: BP 125/74
[2020-11-13] MEDS: FUROSEMIDE 40MG/4ML VIAL IV SCH (08:04)
[2020-11-13] MEDS: DEXAMETHASONE 10 MG/ML VIAL IV SCH (08:04)
[2020-11-13] MEDS: ENOXAPARIN 100MG/ML SYR SUBCUT SCH ×2 (08:05→22:29)
[2020-11-13] MEDS: CLONAZEPAM 1MG TABLET PO PRN ×2 (11:33→22:45)
[2020-11-13] MEDS: CEFTRIAXONE 1,000 MG in DEXTROSE 5% WATER 50 ML IV SCH (11:43)
[2020-11-13 12:00] VITALS: BP 101/83
[2020-11-13 14:21] LABS: BG BASE EXCESS 3.3 mmol/L (-2.0-2.0); BG FRACTION INSPIRED OXYGEN 100; BG HCO3 ACT 26.9 mmol/L (22.0-26.0); BG METHEMOGLOBIN 0.2 % (0.0-1.5); BG OXYGEN SATURATION 91.9 % (92.0-98.5); BG OXYHEMOGLOBIN 90.8 % (94.0-97.0); BG PCO2 37.6 mmHg (35.0-45.0); BG PH 7.472 (7.350-7.450); BG PO2 63.1 mmHg (75.0-100.0); BG SAMPLE SITE RIGHT RADIAL; BG TOTAL HEMOGLOBIN 13.3 g/dL (12.0-18.0); BG VENT MODE MASK - NRB
[2020-11-13 15:27] LABS: PLATELET ESTIMATE NORMAL
[2020-11-13 16:00] VITALS: BP 93/69
[2020-11-13 20:00] VITALS: BP 104/72
[2020-11-13] MEDS: FAMOTIDINE 20MG TABLET PO SCH (22:29)
[2020-11-14] VITALS: BP 109/75
[2020-11-14 04:00] VITALS: BP 118/82
[2020-11-14] MEDS: DILTIAZEM HCL 30MG TABLET PO SCH ×3 (06:31→21:55)
[2020-11-14] MEDS: ALBUTEROL 6.7GM HFA INHALER ORI SCH ×4 (06:32→22:00)
[2020-11-14 06:50] LABS: CHLORIDE 101 mEq/L (98-107)
[2020-11-14 06:59] LABS: HEMATOCRIT. 33.8 % (42.0-52.0); HEMOGLOBIN. 11.1 g/dL (14.0-18.0); MEAN CORPUSCULAR HEMOGLOBIN 27.8 pg (28.0-32.0); MEAN CORPUSCULAR VOLUME 84.5 fL (80.0-94.0); MEAN PLATELET VOLUME 9.1 fl (7.4-10.4); PLATELET 223 x1000/uL (130-400); RED BLOOD CELL COUNT 3.99 mill/uL (4.7-6.1); RED CELL DISTRIBUTION WIDTH 16.2 % (11.6-14.6)
[2020-11-14 08:00] VITALS: BP 116/80
[2020-11-14] MEDS: FUROSEMIDE 40MG/4ML VIAL IV SCH (08:35)
[2020-11-14] MEDS: CLONAZEPAM 1MG TABLET PO PRN ×2 (08:36→21:55)
[2020-11-14] MEDS: DEXAMETHASONE 10 MG/ML VIAL IV SCH (08:36)
[2020-11-14] MEDS: ENOXAPARIN 100MG/ML SYR SUBCUT SCH ×2 (08:36→21:55)
[2020-11-14 12:00] VITALS: BP 117/65
[2020-11-14 14:31] LABS: PLATELET ESTIMATE NORMAL
[2020-11-14 16:00] VITALS: BP 113/87
[2020-11-14 20:00] VITALS: BP 114/74
[2020-11-14] MEDS: FAMOTIDINE 20MG TABLET PO SCH (21:55)
[2020-11-15] VITALS: BP 104/67
[2020-11-15 04:00] VITALS: BP 110/69
[2020-11-15] MEDS: ALBUTEROL 6.7GM HFA INHALER ORI SCH ×4 (05:01→20:12)
[2020-11-15] MEDS: DILTIAZEM HCL 30MG TABLET PO SCH ×3 (05:01→20:12)
[2020-11-15 06:24] LABS: HEMATOCRIT. 35.6 % (42.0-52.0); HEMOGLOBIN. 11.7 g/dL (14.0-18.0); MEAN CORPUSCULAR HEMOGLOBIN 28.2 pg (28.0-32.0); MEAN CORPUSCULAR VOLUME 85.6 fL (80.0-94.0); MEAN PLATELET VOLUME 8.6 fl (7.4-10.4); PLATELET 275 x1000/uL (130-400); RED BLOOD CELL COUNT 4.16 mill/uL (4.7-6.1); RED CELL DISTRIBUTION WIDTH 16.1 % (11.6-14.6)
[2020-11-15 06:29] LABS: CHLORIDE 101 mEq/L (98-107)
[2020-11-15 08:00] VITALS: BP 115/62
[2020-11-15] MEDS: FUROSEMIDE 40MG/4ML VIAL IV SCH (08:16)
[2020-11-15] MEDS: CLONAZEPAM 1MG TABLET PO PRN ×2 (08:16→20:11)
[2020-11-15] MEDS: DEXAMETHASONE 10 MG/ML VIAL IV SCH (08:17)
[2020-11-15] MEDS: ENOXAPARIN 100MG/ML SYR SUBCUT SCH ×2 (08:17→20:12)
[2020-11-15 10:32] LABS: BG CARBOXYHEMOGLOBIN 0.4 % (0.5-1.5); BG DEOXYHEMOGLOBIN 0.9 % (0.0-5.0); BG FRACTION INSPIRED OXYGEN 99.9; BG HCO3 ACT 27.7 mmol/L (22.0-26.0); BG METHEMOGLOBIN 0.2 % (0.0-1.5); BG OXYGEN SATURATION 99.1 % (92.0-98.5); BG OXYHEMOGLOBIN 98.5 % (94.0-97.0); BG PCO2 38.7 mmHg (35.0-45.0); BG PH 7.473 (7.350-7.450); BG PO2 162.8 mmHg (75.0-100.0); BG SAMPLE SITE RIGHT BRACHIAL; BG TOTAL HEMOGLOBIN 13.2 g/dL (12.0-18.0); BG VENT MODE MASK - NRB
[2020-11-15 12:00] VITALS: BP 106/71
[2020-11-15 16:00] VITALS: BP 106/67
[2020-11-15 17:01] LABS: PLATELET ESTIMATE NORMAL
[2020-11-15 19:56] VITALS: BP 110/66
[2020-11-15] MEDS: FAMOTIDINE 20MG TABLET PO SCH (20:11)
[2020-11-16] VITALS: BP 106/69
[2020-11-16 04:00] VITALS: BP 96/63
[2020-11-16] MEDS: DILTIAZEM HCL 30MG TABLET PO SCH ×3 (05:06→21:29)
[2020-11-16] MEDS: ALBUTEROL 6.7GM HFA INHALER ORI SCH ×3 (05:06→17:56)
[2020-11-16 05:17] LABS: HEMATOCRIT. 34.9 % (42.0-52.0); HEMOGLOBIN. 11.8 g/dL (14.0-18.0); MEAN CORPUSCULAR HEMOGLOBIN 28.4 pg (28.0-32.0); MEAN CORPUSCULAR VOLUME 84.3 fL (80.0-94.0); MEAN PLATELET VOLUME 8.1 fl (7.4-10.4); PLATELET 350 x1000/uL (130-400); RED BLOOD CELL COUNT 4.14 mill/uL (4.7-6.1); RED CELL DISTRIBUTION WIDTH 15.8 % (11.6-14.6)
[2020-11-16 05:18] LABS: CHLORIDE 100 mEq/L (98-107)
[2020-11-16 08:00] VITALS: BP 106/70
[2020-11-16] MEDS: DEXAMETHASONE 4MG/ML 1ML VIAL IV SCH (08:46)
[2020-11-16] MEDS: FUROSEMIDE 40MG/4ML VIAL IV SCH (08:46)
[2020-11-16] MEDS: ENOXAPARIN 100MG/ML SYR SUBCUT SCH ×2 (08:47→21:29)
[2020-11-16] MEDS: CLONAZEPAM 1MG TABLET PO PRN ×2 (08:47→21:44)
[2020-11-16] MEDS: POTASSIUM CHLORIDE 20MEQ TABLET SR PO NR ×2 (11:00→11:17)
[2020-11-16 12:00] VITALS: BP 133/88
[2020-11-16 14:23] LABS: NUCLEATED RED BLOOD CELLS 1 /100 WBC
[2020-11-16 14:26] LABS: PLATELET ESTIMATE NORMAL
[2020-11-16 16:00] VITALS: BP 100/81
[2020-11-16 20:00] VITALS: BP 121/79
[2020-11-16] MEDS: FAMOTIDINE 20MG TABLET PO SCH (21:29)
[2020-11-17] VITALS: BP 119/77
[2020-11-17 04:00] VITALS: BP 116/66
[2020-11-17] MEDS: DILTIAZEM HCL 30MG TABLET PO SCH ×3 (05:01→22:46)
[2020-11-17] MEDS: ALBUTEROL 6.7GM HFA INHALER ORI SCH ×4 (05:02→17:02)
[2020-11-17] MEDS: ONDANSETRON HCL 4MG/2ML INJ IV PRN (05:22)
[2020-11-17 05:37] LABS: HEMATOCRIT. 35.4 % (42.0-52.0); HEMOGLOBIN. 11.7 g/dL (14.0-18.0); MEAN CORPUSCULAR VOLUME 84.4 fL (80.0-94.0); MEAN PLATELET VOLUME 8.3 fl (7.4-10.4); PLATELET 337 x1000/uL (130-400); RED BLOOD CELL COUNT 4.19 mill/uL (4.7-6.1); RED CELL DISTRIBUTION WIDTH 16.2 % (11.6-14.6)
[2020-11-17 06:16] LABS: CHLORIDE 104 mEq/L (98-107)
[2020-11-17 08:00] VITALS: BP 117/60
[2020-11-17] MEDS: FUROSEMIDE 40MG/4ML VIAL IV SCH (08:13)
[2020-11-17] MEDS: ENOXAPARIN 100MG/ML SYR SUBCUT SCH ×2 (08:14→22:46)
[2020-11-17] MEDS: CLONAZEPAM 1MG TABLET PO PRN (08:14)
[2020-11-17] MEDS: DEXAMETHASONE 4MG/ML 1ML VIAL IV SCH (08:14)
[2020-11-17] MEDS ORDERED: POTASSIUM CHLORIDE 20MEQ TABLET SR PO NR (11:00)
[2020-11-17 11:40] LABS: BG BASE EXCESS 7.3 mmol/L (-2.0-2.0); BG DEOXYHEMOGLOBIN 21.1 % (0.0-5.0); BG METHEMOGLOBIN 0.1 % (0.0-1.5); BG OXYGEN SATURATION 78.7 % (92.0-98.5); BG OXYHEMOGLOBIN 77.8 % (94.0-97.0); BG PCO2 51.3 mmHg (35.0-45.0); BG PH 7.426 (7.350-7.450); BG PO2 44.2 mmHg (75.0-100.0); BG SAMPLE SITE LEFT RADIAL; BG VENT MODE ROOM AIR
[2020-11-17 12:00] VITALS: BP 102/81
[2020-11-17 15:03] LABS: PLATELET ESTIMATE NORMAL
[2020-11-17 16:00] VITALS: BP 111/74
[2020-11-17 20:00] VITALS: BP 116/71
[2020-11-17] MEDS: FAMOTIDINE 20MG TABLET PO SCH (22:46)
[2020-11-18] VITALS: BP 113/76
[2020-11-18] MEDS: ALBUTEROL 6.7GM HFA INHALER ORI SCH ×4 (02:14→17:16)
[2020-11-18 04:00] VITALS: BP 106/67
[2020-11-18] MEDS: DILTIAZEM HCL 30MG TABLET PO SCH ×2 (06:30→13:29)
[2020-11-18 08:00] VITALS: BP 111/72
[2020-11-18] MEDS: CLONAZEPAM 1MG TABLET PO PRN (09:01)
[2020-11-18] MEDS: FUROSEMIDE 40MG/4ML VIAL IV SCH (09:01)
[2020-11-18] MEDS: ENOXAPARIN 100MG/ML SYR SUBCUT SCH (09:01)
[2020-11-18] MEDS: DEXAMETHASONE 4MG/ML 1ML VIAL IV SCH (09:02)
[2020-11-18 10:41] LABS: HEMATOCRIT. 40.2 % (42.0-52.0); HEMOGLOBIN. 12.9 g/dL (14.0-18.0); MEAN CORPUSCULAR HEMOGLOBIN 28.4 pg (28.0-32.0); MEAN CORPUSCULAR VOLUME 88.6 fL (80.0-94.0); MEAN PLATELET VOLUME 8.7 fl (7.4-10.4); PLATELET 298 x1000/uL (130-400); RED BLOOD CELL COUNT 4.53 mill/uL (4.7-6.1)
[2020-11-18 10:47] LABS: CHLORIDE 101 mEq/L (98-107)
[2020-11-18 12:00] VITALS: BP 94/58
[2020-11-18] MEDS: PIPERACILLIN/TAZOBACTAM 3.375 G in DEXTROSE 5% WATER 50 ML IV SCH (12:43)
[2020-11-18 13:51] LABS: PLATELET ESTIMATE NORMAL
[2020-11-18 16:00] VITALS: BP 110/65
[2020-11-18 20:00] VITALS: BP 124/61
[2020-11-19] VITALS: BP 118/74
[2020-11-19] MEDS: ENOXAPARIN 100MG/ML SYR SUBCUT SCH ×3 (00:28→20:39)
[2020-11-19] MEDS: DILTIAZEM HCL 30MG TABLET PO SCH ×4 (00:28→20:39)
[2020-11-19] MEDS: CLONAZEPAM 1MG TABLET PO PRN ×3 (00:28→20:40)
[2020-11-19] MEDS: ONDANSETRON HCL 4MG/2ML INJ IV PRN (00:28)
[2020-11-19] MEDS: FAMOTIDINE 20MG TABLET PO SCH ×2 (00:29→20:39)
[2020-11-19] MEDS: PIPERACILLIN/TAZOBACTAM 3.375 G in DEXTROSE 5% WATER 50 ML IV SCH ×4 (00:29→20:38)
[2020-11-19] MEDS: ALBUTEROL 6.7GM HFA INHALER ORI SCH ×5 (00:29→23:08)
[2020-11-19 04:00] VITALS: BP 106/71
[2020-11-19 06:47] LABS: HEMATOCRIT. 38.4 % (42.0-52.0); HEMOGLOBIN. 12.6 g/dL (14.0-18.0); MEAN CORPUSCULAR HEMOGLOBIN 28.5 pg (28.0-32.0); MEAN PLATELET VOLUME 8.3 fl (7.4-10.4); PLATELET 325 x1000/uL (130-400); RED BLOOD CELL COUNT 4.41 mill/uL (4.7-6.1); RED CELL DISTRIBUTION WIDTH 17.1 % (11.6-14.6)
[2020-11-19 06:50] LABS: CHLORIDE 101 mEq/L (98-107)
[2020-11-19 07:44] VITALS: BP 114/79
[2020-11-19] MEDS: FUROSEMIDE 40MG/4ML VIAL IV SCH (08:32)
[2020-11-19] MEDS: DEXAMETHASONE 4MG/ML 1ML VIAL IV SCH (08:32)
[2020-11-19 11:10] LABS: PLATELET ESTIMATE NORMAL
[2020-11-19 12:00] VITALS: BP 99/72
[2020-11-19 15:50] VITALS: BP 99/75
[2020-11-19 20:00] VITALS: BP 121/78
[2020-11-20] VITALS: BP 112/63
[2020-11-20 04:00] VITALS: BP 110/80
[2020-11-20] MEDS: PIPERACILLIN/TAZOBACTAM 3.375 G in DEXTROSE 5% WATER 50 ML IV SCH ×3 (05:02→21:29)
[2020-11-20] MEDS: DILTIAZEM HCL 30MG TABLET PO SCH ×3 (05:02→21:30)
[2020-11-20] MEDS: ALBUTEROL 6.7GM HFA INHALER ORI SCH ×3 (05:02→17:06)
[2020-11-20 06:21] LABS: HEMATOCRIT. 36.1 % (42.0-52.0); HEMOGLOBIN. 11.5 g/dL (14.0-18.0); MEAN CORPUSCULAR HEMOGLOBIN 28.2 pg (28.0-32.0); MEAN CORPUSCULAR VOLUME 88.2 fL (80.0-94.0); MEAN PLATELET VOLUME 8.4 fl (7.4-10.4); PLATELET 275 x1000/uL (130-400); RED BLOOD CELL COUNT 4.09 mill/uL (4.7-6.1); RED CELL DISTRIBUTION WIDTH 18.1 % (11.6-14.6)
[2020-11-20 06:26] LABS: CHLORIDE 99 mEq/L (98-107)
[2020-11-20 07:50] VITALS: BP 107/83
[2020-11-20] MEDS: FUROSEMIDE 40MG/4ML VIAL IV SCH (08:22)
[2020-11-20] MEDS: ENOXAPARIN 100MG/ML SYR SUBCUT SCH ×2 (08:22→21:30)
[2020-11-20] MEDS: DEXAMETHASONE 4MG/ML 1ML VIAL IV SCH (08:23)
[2020-11-20 10:35] LABS: PLATELET ESTIMATE NORMAL
[2020-11-20 12:00] VITALS: BP 95/68
[2020-11-20 16:00] VITALS: BP 104/71
[2020-11-20 20:00] VITALS: BP 104/68
[2020-11-20] MEDS: FAMOTIDINE 20MG TABLET PO SCH (21:29)
[2020-11-20] MEDS ORDERED: CLONAZEPAM 1MG TABLET PO SCH (22:45)
[2020-11-20] MEDS: CLONAZEPAM 1MG TABLET PO PRN (22:58)
[2020-11-21] VITALS: BP 118/78
[2020-11-21] MEDS: ALBUTEROL 6.7GM HFA INHALER ORI SCH ×4 (00:21→17:21)
[2020-11-21 04:00] VITALS: BP 125/91
[2020-11-21 06:43] LABS: HEMATOCRIT. 39.2 % (42.0-52.0); HEMOGLOBIN. 13.1 g/dL (14.0-18.0); MEAN CORPUSCULAR VOLUME 86.8 fL (80.0-94.0); MEAN PLATELET VOLUME 8.4 fl (7.4-10.4); PLATELET 280 x1000/uL (130-400); RED BLOOD CELL COUNT 4.52 mill/uL (4.7-6.1); RED CELL DISTRIBUTION WIDTH 17.7 % (11.6-14.6)
[2020-11-21] MEDS: PIPERACILLIN/TAZOBACTAM 3.375 G in DEXTROSE 5% WATER 50 ML IV SCH ×3 (06:45→22:10)
[2020-11-21] MEDS: DILTIAZEM HCL 30MG TABLET PO SCH ×3 (06:48→22:10)
[2020-11-21 07:06] LABS: CHLORIDE 105 mEq/L (98-107)
[2020-11-21 08:00] VITALS: BP 122/95
[2020-11-21] MEDS: FUROSEMIDE 40MG/4ML VIAL IV SCH (08:39)
[2020-11-21] MEDS: DEXAMETHASONE 4MG/ML 1ML VIAL IV SCH (08:39)
[2020-11-21] MEDS: ENOXAPARIN 100MG/ML SYR SUBCUT SCH ×3 (08:39→22:10)
[2020-11-21 10:30] LABS: PLATELET ESTIMATE NORMAL
[2020-11-21] MEDS: CLONAZEPAM 1MG TABLET PO PRN ×2 (11:37→22:45)
[2020-11-21 12:00] VITALS: BP 114/68
[2020-11-21 15:59] VITALS: BP 106/62
[2020-11-21 20:00] VITALS: BP_SYST 107; BP_SYST 109; BP_DIAS 50; BP_DIAS 78
[2020-11-21] MEDS: FAMOTIDINE 20MG TABLET PO SCH (22:10)
[2020-11-22] VITALS: BP 103/78
[2020-11-22 04:00] VITALS: BP 92/40
[2020-11-22] MEDS: DILTIAZEM HCL 30MG TABLET PO SCH ×2 (06:00→14:00)
[2020-11-22] MEDS: ALBUTEROL 6.7GM HFA INHALER ORI SCH ×3 (06:33→14:09)
[2020-11-22] MEDS: PIPERACILLIN/TAZOBACTAM 3.375 G in DEXTROSE 5% WATER 50 ML IV SCH ×2 (06:33→14:08)
[2020-11-22 08:00] VITALS: BP 106/60
[2020-11-22 08:07] LABS: CHLORIDE 95 mEq/L (98-107)
[2020-11-22] MEDS: FUROSEMIDE 40MG/4ML VIAL IV SCH (08:10)
[2020-11-22] MEDS: ENOXAPARIN 100MG/ML SYR SUBCUT SCH (08:11)
[2020-11-22] MEDS ORDERED: DEXAMETHASONE 4MG/ML 1ML VIAL IV SCH (09:00)
[2020-11-22 12:00] VITALS: BP 96/64
[2020-11-22 12:32] LABS: MEAN CORPUSCULAR HEMOGLOBIN 29.1 pg (28.0-32.0); MEAN PLATELET VOLUME 8.2 fl (7.4-10.4); PLATELET 310 x1000/uL (130-400); RED BLOOD CELL COUNT 5.29 mill/uL (4.7-6.1); RED CELL DISTRIBUTION WIDTH 19.2 % (11.6-14.6)
[2020-11-22 12:38] LABS: HEMOGLOBIN. 15.4 g/dL (14.0-18.0); MEAN CORPUSCULAR VOLUME 90.2 fL (80.0-94.0)
[2020-11-22 12:39] LABS: HEMATOCRIT. 47.7 % (42.0-52.0)
[2020-11-22] MEDS ORDERED: FURO-151 MT (13:45)
[2020-11-22] MEDS ORDERED: DEXA2TAB PO (13:45)
[2020-11-22] MEDS ORDERED: ALBU90AE INH (13:45)
[2020-11-22] MEDS ORDERED: AMOX-424 MT (13:45)
[2020-11-22] MEDS ORDERED: APIX5TAB MT (13:45)
[2020-11-22] MEDS ORDERED: OMEP10CA5 MT (13:45)
[2020-11-22 14:36] VITALS: BP 103/64
[2020-11-22 16:00] VITALS: BP 104/66
[2020-11-22] MEDS: CLONAZEPAM 1MG TABLET PO PRN (16:17)
[2020-11-22 16:38] LABS: PLATELET ESTIMATE NORMAL
== END 2020-11-22 18:00 | disposition home or self-care (01) | DRG 871 ==
LOC: ER 20:28 → 7WST 11-08 01:36 → EDBEDREQDT 11-08 01:55 → EDBEDREQ 11-08 01:55 → EDBEDREQTM 11-08 01:55 → ENRESERV 11-08 07:32
PROVIDERS: ADMIT Internal Medicine; ATTEND Internal Medicine
DX: A41.89 Other specified sepsis (principal); U07.1 COVID-19; J12.82 Pneumonia due to coronavirus disease 2019; J96.01 Acute respiratory failure with hypoxia; I50.43 Acute on chronic combined systolic (congestive) and diastolic (congestive) heart failure; B19.20 Unspecified viral hepatitis C without hepatic coma; D64.9 Anemia, unspecified; E03.9 Hypothyroidism, unspecified; I27.20 Pulmonary hypertension, unspecified; R74.01 Elevation of levels of liver transaminase levels; F31.9 Bipolar disorder, unspecified; I48.91 Unspecified atrial fibrillation; Z91.14 Patient's other noncompliance with medication regimen; Z79.899 Other long term (current) drug therapy; Z88.8 Allergy status to other drugs, medicaments and biological substances
CPT/HCPCS: 36415; 36600; 71045; 80048; 80053; 80061; 80076; 80305; 81003; 82375; 82550; 82553; 82728; 82805; 83615; 83880; 84145; 84439; 84443; 84484; 85025; 85379; 86141; 87426; 93005; 93970; 94640; 99291; A4565; A6261; C1893; J0456; J0696; J1100; J1170; J1200; J1650; J1940; J2405; J2543; J3490; J7040; J7060; U0003; U0005